=== PATIENT | female | born 1955 | race Caucasian/White ===

== ENCOUNTER 2016-12-22 12:45 | Emergency (ER) | payer OTHER ==
[~2016-12-22] VITALS: Ht 165.1 cm; Wt 72.6 kg
[2016-12-22 12:47] VITALS: BP 130/86
[2016-12-22] MEDS ORDERED: NAPROSYN500 MG PO (13:11)
== END 2016-12-22 13:32 | disposition home or self-care (01) ==
LOC: ER 12:45
DX: S16.1XXA Strain of muscle, fascia and tendon at neck level, initial encounter (principal); S09.90XA Unspecified injury of head, initial encounter; I10 Essential (primary) hypertension; E78.00 Pure hypercholesterolemia, unspecified; E11.9 Type 2 diabetes mellitus without complications; F41.9 Anxiety disorder, unspecified; Z87.891 Personal history of nicotine dependence; V49.40XA Driver injured in collision with unspecified motor vehicles in traffic accident, initial encounter; Y93.I9 Activity, other involving external motion; Y92.410 Unspecified street and highway as the place of occurrence of the external cause; Y99.9 Unspecified external cause status